=== PATIENT | male | born 1985 | race Caucasian/White ===

== ENCOUNTER 2023-02-17 23:49 | Emergency (ER) | payer SELFPAY ==
[2023-02-18] MEDS ORDERED: Lidocaine 1% (PF) 30 ML VIAL ONE
[2023-02-18] MEDS ORDERED: Bacitracin 1 PK ONE ×2 (00:30→00:32)
[2023-02-18] MEDS ORDERED: HYDROcodone/Acetaminophen 10/325 mg Tablet ONE (00:42)
[2023-02-18] MEDS ORDERED: Cephalexin 250 MG CAP ONE (00:42)
[2023-02-18] MEDS ORDERED: Acetaminophen 500 MG TAB ONE (01:10)
== END 2023-02-18 02:31 | disposition home or self-care (01) ==
LOC: BURERS 23:49
DX: S12.300A Unspecified displaced fracture of fourth cervical vertebra, initial encounter for closed fracture (principal); S01.81XA Laceration without foreign body of other part of head, initial encounter; F17.220 Nicotine dependence, chewing tobacco, uncomplicated; W22.8XXA Striking against or struck by other objects, initial encounter; Y93.01 Activity, walking, marching and hiking
CPT/HCPCS: 12015; 70450; 72125; J2001

== ENCOUNTER 2023-04-06 12:47 | Outpatient (CLI) | payer OTHER | END 2023-04-06 12:48 | disposition home or self-care (01) | LOC: BURRAD 12:47 | PROVIDERS: ATTEND Neurological Surgery | DX: S12.300D Unspecified displaced fracture of fourth cervical vertebra, subsequent encounter for fracture with routine healing (principal) | CPT/HCPCS: 72050 ==